=== PATIENT | female | born 1950 | race Caucasian/White ===

== ENCOUNTER 2018-06-13 10:25 | Emergency (ER) | payer MEDICARE, MEDICAID, SELFPAY ==
[2018-06-13 10:32] VITALS: BP 163/60; PULSE 64; RESP 18; TEMP 36.8
[2018-06-13 10:34] VITALS: RESP 18; TEMP 36.8
[2018-06-13 11:43] VITALS: BP 165/80; PULSE 86; RESP 16; TEMP 36.8; O2SAT 97
--- NOTE | 2018-06-13 12:09 | DI.RAD_ITS ---
SYMPTOM/DIAGNOSIS: S/P FALL ON TO BACK, R/O ACUTE FX THORACOLUMBAR SPINE Frontal and lateral views centered at the thoracolumbar junction were obtained. There are no acute fractures or subluxations seen. Mild degenerative changes are seen in the visualized portions of the thoracolumbar spine. Surgical clips are seen in the abdomen. The bowel gas pattern is nonspecific. The lung bases appear clear. IMPRESSION: No definite acute fracture or subluxation centered at the thoracolumbar junction.
--- NOTE | 2018-06-13 12:16 | ED.GENADUL_ITS ---
Discharge Plan Disposition Patient Disposition: HOME Condition: Improving Discharge Details Chief Complaint: Nk/Back Pain Clinical Impression: Back contusion Primary Care Provider: Phuong Lobo ED Provider: Mavis Bahena Home Meds and New Rx's Prescriptions: Continue citalopram 10 mg tablet 10 mg PO HS Qty: 90 RF: 3 cannabidiol oil BID RF: 0 ibuprofen 600 MG tablet 600 mg PO BID PRNQty: 60 RF: 0 pantoprazole 20 MG tablet,delayed release (DR/EC) 20 mg PO DAILY Qty: 90 RF: 3 No Action ibuprofen 600 mg tablet 600 mg PO QID PRN (Reason: pain) Qty: 60 RF: 1 diazepam 5 mg tablet 5 mg PO TID PRN (Reason: muscle spasm) Qty: 14 RF: 0 Discharge Instructions Instructions: Contusion in Adults (ED), Back Pain (ED) Additional Instructions: Take Motrin and Valium as needed and directed for pain and muscle spasm, respectively. Take the oxycodone for pain not relieved with Motrin or Valium. Alternate ice and heat to the affected area several times daily for 20 minutes at a time. Follow-up with primary care doctor in 1 week for reevaluation. Return to the emergency department any worsening or new concerning symptoms. Discharge Data Discharge Date/Time-TO BE ENTERED AT DEPARTURE: 06/13/18 15:18 Discharge Physician: Mavis Bahena Medical Decision Making Patient is a 67-year-old female who presents with mid back pain after mechanical fall directly on back 5 days ago at home. No focal deficits. No chest or abdominal pain. 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 Blood pressure 165/80, remainder vitals within normal limits. Patient appears nontoxic but mildly uncomfortable due to pain. Pain worse with movement. She has tenderness to palpation along the lower midline thoracic spine and bilateral paraspinal region. No evidence of trauma or step-off. Lungs clear to auscultation. Abdomen soft nontender. Distal pulses intact. Patient offered narcotics but declines at this time. Will give a dose of Toradol IM and Valium p.o. and send for thoracic spine x-ray. Discussed with radiology and asked that they widen the view to observe the ribs in this region. 1440 -- Xray reviewed and negative. Pt feels much better and is requesting to go home. Patient was observed talking with another person in the waiting room and was twisted around in a chair and appeared much more comfortable. Will send home with 2 tabs of oxycodone to take if pain persists or worsens. Will send home with prescription for Motrin and Valium. Patient instructed on the importance of ice, heat. Instructed to f/u with the primary care doctor in 1 week for reevaluation and return to ER if worse. HPI General Mode of arrival: ambulatory . Date/Time Provider Initiated Documentation: 06/13/18 11:24 . Limitations to Documentation: no limitations . Information obtained by: patient . HPI Narrative: Patient is a 67-year-old female who presents with mid back pain after mechanical fall directly on back 5 days ago at home. She denies head injury, LOC or vomiting. She states pain is worse with movement and when laying supine and better with nothing. She has taken ibuprofen, applied heat and BenGay without relief. 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 She denies chest pain, shortness of breath, abdominal pain, leg pain, weakness, numbness, saddle anesthesia, urinary or fecal incontinence. Past medical history: Depression, osteoarthritis, post poliomyelitis Surgical history: Knee surgery, D&C, tonsillectomy Social history: Occasional alcohol use, denies tobacco or drugs Medications: See list Allergies: Cipro Related Data Home Medications Medication Instructions Recorded Confirmed Cannabidiol Oil BID 05/21/17 06/16/18 ibuprofen 600 mg PO BID PRN #60 tab-cap 10/15/17 06/16/18 pantoprazole 20 mg PO DAILY #90 tab-cap 04/30/18 06/16/18 citalopram 10 mg tablet 10 mg PO HS #90 tab-cap 06/04/18 06/16/18 diazepam 5 mg tablet 5 mg PO TID PRN #14 tab 06/16/18 06/16/18 ibuprofen 600 mg tablet 600 mg PO QID PRN #60 tab 06/16/18 06/16/18 Previous Rx's Medication Instructions Recorded pantoprazole 20 mg PO DAILY #90 tab-cap 04/30/18 citalopram 10 mg tablet 10 mg PO HS #90 tab-cap 06/04/18 diazepam 5 mg tablet 5 mg PO TID PRN #14 tab 06/16/18 ibuprofen 600 mg tablet 600 mg PO QID PRN #60 tab 06/16/18 Allergies Allergy/AdvReac Type Severity Reaction Status Date / Time ciprofloxacin HCl Allergy Severe Unverified 06/16/18 14:34 [From Cipro] General Stated Complaint: Nk/Back Pain ANKUSH: 4 Review of Systems Review of Systems All systems reviewed & are unremarkable except as noted in HPI and below PFSH Family History Father Diabetes Heart disease Brother Frontal lobe dementia Brother Personal history of malignant neoplasm Medical History Depression Osteoarthritis Post poliomyelitis syndrome Social History Smoking/Tobacco Use Status: Never Surgical History Arthroplasty of knee Colonoscopy - IV Sedation (04/05/15) Dilation and curettage EGD - IV Sedation (06/22/16) left hip due to polio Exam Const General: cooperative, healthy appearing, no acute distress and other (pt appears mildly uncomfortable) Orientation: alert, awake and oriented x3 HENMT Head: normal to inspection Ears: hearing grossly normal bilaterally and external ears normal General nose exam: external nose normal Face and sinus: normal facial exam Mouth: oral mucosae normal Eyes General: appearance normal, both eyes and all related structures Eyelids: eyelids normal EOM: EOM intact bilaterally Neck Neck: normal visual inspection Lymphatic: no lymphadenopathy noted Chest Chest: normal inspection of the chest Resp Effort & Inspection: normal respiratory effort and able to speak in complete sentences Auscultation: clear to auscultation bilaterally Cardio Rate: regular rate Rhythm: regular rhythm GI Inspection: normal to inspection Palpation: soft, not firm, no guarding, no hepatosplenomegaly, no masses and nontender Auscultation: normal bowel sounds Back/Spine/Pelvis Back: No mass, No erythema, No warmth and No ecchymosis Cervical Spine: No cervical spinal tenderness Thoracic/Lumbar Spine: paraspinal tenderness (Bilateral thoracic), thoracic spinal tenderness and No lumbar spinal tenderness Skin General skin exam: no rashes or lesions noted Neuro General: alert and awake Cognition: normal cognition Speech: speech normal Gait: normal gait Motor: muscle tone normal throughout Sensory Exam: no sensory deficits noted DTR's: Rt Patellar: 1+ and Rt Ankle: 1+ Plantar Reflexes: Equivocal: bilateral Extrem General: normal to inspection, full ROM and normal capillary refill Left lower extremity: lower leg Other: Bilateral DP/PT pulses intact. Strength right lower extremity 5/5. Strength left lower extremity 3/5 which is chronic. Negative Babinski bilaterally. Psych Appearance: grossly normal Mental Status: mental status grossly normal Speech and Movement: speech and movement normal Affect: normal affect Thought Process: normal Course Vital Signs Temperature 98.2 F 06/13/18 10:32 Pulse 64 06/13/18 10:32 Respiratory Rate 18 06/13/18 10:32 Blood Pressure 163/60 H 06/13/18 10:32 Temperature 98.2 F 06/13/18 11:43 Temperature Source Temporal Artery Scan 06/13/18 11:43 Pulse 86 06/13/18 11:43 Respiratory Rate 16 06/13/18 11:43 Respiratory Effort 06/13/18 10:34 Respiratory Depth Normal 06/13/18 10:34 Respiratory Pattern Normal 06/13/18 10:34 Blood Pressure 165/80 H 06/13/18 11:43 Blood Pressure Position Supine 06/13/18 10:32 Pulse Oximetry 97 06/13/18 11:43 Oxygen Delivery Method Room Air 06/13/18 11:43 Oxygen Flow Rate 0 06/13/18 11:43 Pain Level 10 06/13/18 10:32
[2018-06-13] MEDS: Ketorolac 60 MG/2 ML VIAL IM (12:17)
[2018-06-13] MEDS: Diazepam 5 MG TAB PO (12:17)
[2018-06-13] MEDS: oxyCODONE 5 MG TAB PO (15:12)
[2018-06-13 15:16] VITALS: BP 145/80; PULSE 86; RESP 18; TEMP 36.8; O2SAT 99
== END 2018-06-13 15:18 | disposition home or self-care (01) ==
PROVIDERS: Emergency Provider Physician Assistant; PCP Internal Medicine
DX: S20.229A Contusion of unspecified back wall of thorax, initial encounter (principal); W18.30XA Fall on same level, unspecified, initial encounter
CPT/HCPCS: 96372; 99284; 72080; J1885

== ENCOUNTER 2019-05-03 13:19 | Emergency (ER) | payer MEDICARE, MEDICAID, SELFPAY ==
[2019-05-03 13:29] VITALS: BP 136/87; PULSE 79; RESP 14; TEMP 36.4; O2SAT 98
--- NOTE | 2019-05-03 13:47 | DI.RAD_ITS ---
SYMPTOM/DIAGNOSIS: SWELLING TOP OF FOOT LEFT FOOT: Three views were obtained. Note is made of soft tissue swelling over the dorsum of the foot at the level of the metatarsals. No definite underlying bony abnormality is seen. Please correlate clinically with history of trauma. Additional evaluation with CT or MRI may be considered if there is a suspicion of a mass of the foot.
--- NOTE | 2019-05-03 14:14 | ED.GENADUL_ITS ---
Discharge Plan Disposition Patient Disposition: HOME Condition: Fair Discharge Details Chief Complaint: Orthopedic Clinical Impression: Contusion of foot Primary Care Provider: Phuong Lobo ED Provider: Shelby Duron Home Meds and New Rx's Prescriptions: Continued citalopram 10 mg tablet 10 mg PO HS Qty: 90 RF: 3 diazepam 5 mg tablet 5 mg PO TID PRN (Reason: muscle spasm) Qty: 14 RF: 0 cannabidiol oil BID RF: 0 pantoprazole 20 MG tablet,delayed release (DR/EC) 20 mg PO DAILY Qty: 90 RF: 3 ibuprofen 600 mg tablet 600 mg PO BID PRN (Reason: pain) Qty: 60 RF: 5 Discharge Instructions Instructions: Contusion in Adults (ED), Foot Contusion (ED) Additional Instructions: Encourage rest, ice, elevation. Tylenol and ibuprofen as needed for discomfort. He the Jasvir wrap to help with swelling. If the pain persists over the next 1 to 2 weeks follow up with primary care provider. If you develop new or worsening symptoms please seek care urgently once again. Referrals: Phuong Lobo MD [Primary Care Provider] - Discharge Data Discharge Date/Time-TO BE ENTERED AT DEPARTURE: 05/03/19 15:28 Medical Decision Making Patient 68-year-old female presenting today with chief complaint of left foot pain x3 weeks. On exam, the patient has swelling and ecchymosis to the dorsal aspect of the foot. She is neurovascular intact. Brisk capillary refill. Sensation is intact. Concern for fracture, plan for imaging X-ray reviewed by radiologist with no acute bony abnormality noted. Discussed these findings with the patient. I do not see any evidence of cellulitis or acute infection. Encourage rest, ice, elevation. Tylenol and ibuprofen as needed for discomfort. Advised to follow-up with primary care if not improving and the next 1 to 2 weeks. We discussed the signs symptoms of infection that should prompt her to seek care urgently once again. All the questions and concerns were addressed and she is in agreement this plan. HPI General Mode of arrival: ambulatory . Date/Time Provider Initiated Documentation: 05/03/19 14:06 . Limitations to Documentation: no limitations . Information obtained by: patient and RN notes reviewed . HPI Narrative: Patient is 68-year-old female presented today with chief complaint of left foot pain. She reports that 3 weeks ago she was working around her house when a 3 layer table tipped over landing on the dorsal aspect of her foot. Since then, she has had a large amount of ecchymosis. She reports that this is been improving. However, she noted today that the area felt warm. She denies any fevers, chills, increased pain. Patient walks with a cane at baseline as she had polio as a child. No change in her gait per patient's report. She denies any increased pain at this time. Related Data Home Medications Medication Instructions Recorded Confirmed Cannabidiol Oil BID 05/21/17 06/16/18 pantoprazole 20 mg PO DAILY #90 tab-cap 04/30/18 06/16/18 citalopram 10 mg tablet 10 mg PO HS #90 tab-cap 06/04/18 06/16/18 diazepam 5 mg tablet 5 mg PO TID PRN #14 tab 06/16/18 06/16/18 ibuprofen 600 mg tablet 600 mg PO BID PRN #60 tab-cap 10/22/18 Previous Rx's Medication Instructions Recorded pantoprazole 20 mg PO DAILY #90 tab-cap 04/30/18 citalopram 10 mg tablet 10 mg PO HS #90 tab-cap 06/04/18 diazepam 5 mg tablet 5 mg PO TID PRN #14 tab 06/16/18 ibuprofen 600 mg tablet 600 mg PO BID PRN #60 tab-cap 10/22/18 Allergies Allergy/AdvReac Type Severity Reaction Status Date / Time ciprofloxacin HCl Allergy Severe Unverified 06/16/18 14:34 [From Cipro] General Stated Complaint: Orthopedic ANKUSH: 4 Review of Systems Constitutional Reports as per HPI, Denies chills, Denies fever(s), Denies headache(s) and Denies weakness ENT Denies headache(s) Cardiovascular Reports as per HPI Respiratory Reports as per HPI and Denies cough Musculoskeletal Reports as per HPI and Denies tingling Integumentary/Breasts Reports as per HPI, Denies rash and Denies wounds Neurologic Reports as per HPI, Denies headache(s), Denies tingling, Denies paresthesias and Denies weakness [facility] Social History Smoking/Tobacco Use Status: Never Alcohol Intake: never Drug use: Never Do you feel safe at home: Yes Do you feel safe in your relationship?: Yes Exam Const General: cooperative, healthy appearing, comfortable, no acute distress, well developed and well groomed Nutritional Appearance: average body habitus and well nourished Orientation: alert and awake Resp Effort & Inspection: normal respiratory effort, able to speak in complete sentences and no respiratory distress Cardio Rate: regular rate Rhythm: regular rhythm Skin General skin exam: no rashes or lesions noted Lesions: no lesions Rashes: no rashes Trauma: no lacerations or abrasions Neuro General: alert and awake Cognition: normal cognition Speech: speech normal Gait: normal gait Motor: muscle tone normal throughout Sensory Exam: no sensory deficits noted Psych Appearance: grossly normal and well kempt Mental Status: mental status grossly normal Speech and Movement: speech and movement normal Course Vital Signs Temperature 36.4 C L 05/03/19 13:29 Pulse 79 05/03/19 13:29 Respiratory Rate 14 05/03/19 13:29 Blood Pressure 136/87 05/03/19 13:29 Pulse Oximetry 98 05/03/19 13:29 Temperature 36.4 C L 05/03/19 13:29 Temperature Source Temporal Artery Scan 05/03/19 13:29 Pulse 79 05/03/19 13:29 Respiratory Rate 14 05/03/19 13:29 Blood Pressure 136/87 05/03/19 13:29 Pulse Oximetry 98 05/03/19 13:29 Oxygen Delivery Method Room Air 05/03/19 13:29 Oxygen Flow Rate 0 05/03/19 13:29 Pain Level 0 05/03/19 13:29
== END 2019-05-03 15:28 | disposition home or self-care (01) ==
PROVIDERS: Emergency Provider Physician Assistant; PCP Internal Medicine
DX: S90.32XA Contusion of left foot, initial encounter (principal); W20.8XXA Other cause of strike by thrown, projected or falling object, initial encounter
CPT/HCPCS: 99283; 73630; 99282

== ENCOUNTER 2019-07-10 02:36 | Outpatient (CLI) | payer MEDICARE, MEDICAID, SELFPAY ==
--- NOTE | 2019-07-10 10:47 | PFT_ITS ---
JULY 10, 2019 REQUESTING PROVIDER: Catarina Rodas. SPIROMETRY: Shows no evidence of obstructive airways disease. No bronchodilator response. LUNG VOLUME: Shows no evidence of restriction. DIFFUSION CAPACITY: Normal. AIRWAYS RESISTANCE: Normal. IMPRESSION: Normal pulmonary function study. Clinical correlation is recommended.
[2019-07-10] MEDS: Inhaler, Assist Device 1 EACH MC (13:32)
[2019-07-10] MEDS: Albuterol HFA 18 GM 200 PUFF INH IH (13:33)
== END 2019-07-10 02:56 ==
PROVIDERS: PCP Internal Medicine; Visit Provider Internal Medicine
DX: R06.00 Dyspnea, unspecified (principal)
CPT/HCPCS: 94060; 94150; 94726; 94729

== ENCOUNTER 2019-07-27 01:15 | Outpatient (CLI) | payer MEDICARE, MEDICAID, SELFPAY ==
--- NOTE | 2019-07-27 12:23 | DI.MAMMO_ITS ---
EXAM: MG MAMMO SCREENING CLINICAL HISTORY: screening Z12.39 TECHNIQUE: Bilateral full field digital CC and MLO mammographic images were obtained with 3D tomosyn thesis and utilizing computer aided detection (CAD). COMPARISON: Available for comparison. FINDINGS: Masses/Architectural Distortion: None seen. Microcalcifications: No suspicious pleomorphic-type are seen. Skin Thickening/Nipple Retraction: None. IMPRESSION: 1. No significant interval change with no specific features of malignancy noted. 2. Unless there is more urgent need, screening mammography is recommended, as per [employer] guidelines. ACR BI-RAD Category- 1 Negative Breast Density - Category B - Scattered areas of fibroglandular density A negative radiographic report should not delay biopsy if a dominant or clinically suspicious mass is present. Up to ten percent of cancers are not identified on mammography. A negative report may reinforce clinical impression. Adenosis and dense breasts may obscure an underlying neoplasm. False positive reports average 6 to 10%. Patient will receive a letter notifying them of these results.
== END 2019-07-27 01:35 ==
PROVIDERS: PCP Internal Medicine; Visit Provider Internal Medicine
DX: Z12.31 Encounter for screening mammogram for malignant neoplasm of breast (principal)
CPT/HCPCS: 77063; 77067

== ENCOUNTER 2021-06-02 02:26 | Outpatient (CLI) | payer MEDICARE, MEDICAID, SELFPAY ==
[2021-06-02 14:44] LABS: Anion Gap 7.9 mmol/L (3-11); BUN 16 mg/dL (7-18); CO2 27.1 mmol/L (21.0-32.0); CREATININE 0.7 mg/dL (0.55-1.02); Calcium 9.9 mg/dL (8.5-10.1); Calculated LDL 143 mg/dL (<100); Chloride 105 mmol/L (98-107); Cholesterol 220 mg/dL (<200); Glucose 77 mg/dL (74-106); HDL Cholesterol 59 mg/dL (40-60); Potassium 4.6 mmol/L (3.5-5.1); Sodium 140 mmol/L (136-145); Triglyceride 94 mg/dL (<150)
== END 2021-06-02 02:27 | disposition home or self-care (01) ==
LOC: LBO 02:26
PROVIDERS: PCP Internal Medicine; Visit Provider Internal Medicine
DX: Z13.220 Encounter for screening for lipoid disorders; Z13.1 Encounter for screening for diabetes mellitus
CPT/HCPCS: 36415; 80048; 80061

== ENCOUNTER 2021-06-02 03:29 | Outpatient (CLI) | payer MEDICARE, MEDICAID, SELFPAY ==
--- NOTE | 2021-06-02 07:15 | DI.MAMMO_ITS ---
Exam(s) MAMMO SCREENING EXAM: MAMMO SCREENING CLINICAL HISTORY: screening,Z12.39 TECHNIQUE: Bilateral full field digital CC and MLO mammographic images were obtained with 3D tomosyn thesis and utilizing computer aided detection (CAD). COMPARISON: Available for comparison. FINDINGS: Masses/Architectural Distortion: None seen. Microcalcifications: No suspicious pleomorphic-type are seen. Skin Thickening/Nipple Retraction: None. IMPRESSION: 1. No significant interval change with no specific features of malignancy noted. 2. Unless there is more urgent need, screening mammography is recommended, as per [employer] guidelines. BI-RADS Category 1 - Negative Breast Density - Category B - Scattered areas of fibroglandular density Breast density category C or D implies that the patient has dense breast tissue. Dense breast tissue is very common and is not abnormal but dense breast tissue can make it harder to find cancer on a ma mmogram. Also, dense breast tissue may increase their breast cancer risk. This information about the result of the mammogram report was provided to the patient to raise their awareness. Use this report when you speak with the patient about their risks for breast cancer, which includes their family hist ory. At that time, you may recommend for more screening tests (Ultrasound or MRI) as they might be us eful based on their risk. A negative radiographic report should not delay biopsy if a dominant or clinically suspicious mass is present. Up to ten percent of cancers are not identified on mammography. A negative report may reinforce clinical impression. Adenosis and dense breasts may obscure an underlying neoplasm. False positive reports average 6 to 10%. Patient will receive a letter notifying them of these results.
== END 2021-06-02 03:49 ==
PROVIDERS: PCP Internal Medicine; Visit Provider Internal Medicine
DX: Z12.31 Encounter for screening mammogram for malignant neoplasm of breast (principal)
CPT/HCPCS: 77063; 77067

== ENCOUNTER 2022-03-13 09:11 | Outpatient (REF) | payer MEDICARE, MEDICAID, SELFPAY ==
[2022-03-15 11:51] LABS: COVID-19 RT-PCR UVMMC Result Negative (Negative)
== END 2022-03-13 09:12 | disposition home or self-care (01) ==
LOC: LBN 09:11
PROVIDERS: PCP Internal Medicine; Visit Provider Internal Medicine
DX: Z20.822 Contact with and (suspected) exposure to COVID-19 (principal); Z01.818 Encounter for other preprocedural examination
CPT/HCPCS: U0003; U0005

== ENCOUNTER 2022-07-31 03:36 | Outpatient (CLI) | payer MEDICARE, MEDICAID, SELFPAY ==
[2022-08-01 09:47] LABS: Hepatitis C Ab w Rflx HCV PCR Negative (Negative)
== END 2022-07-31 03:37 | disposition home or self-care (01) ==
LOC: LBO 03:36
PROVIDERS: PCP Nurse Practitioner Adult Health; Visit Provider Nurse Practitioner Family
DX: Z11.59 Encounter for screening for other viral diseases (principal); G14 Postpolio syndrome; F41.8 Other specified anxiety disorders
CPT/HCPCS: 36415; 86803

== ENCOUNTER 2022-11-16 00:53 | Outpatient (CLI) | payer MEDICARE, MEDICAID, SELFPAY ==
--- NOTE | 2022-11-16 13:00 | DI.DEXA_ITS ---
Exam(s) XR DEXA BONE DENSITY W/WO JUS EXAM: XR DEXA BONE DENSITY W/WO JUS CLINICAL HISTORY: screening for osteoporosis IN POSTMENOPAUSAL WOMAN,Z78.0 TECHNIQUE: Routine DEXA evaluation of the lumbar spine, hip, or forearm. COMPARISON: No exams were available for comparison FINDINGS: Performed on a Hologic unit. Lateral image: No compression fracture evident. Lumbar Spine total T-score: -1.6 Hip total T-score:-2.2 Independent reading at the level of the femoral neck yields T-score of -1.5 Forearm total T-score: -3.0 IMPRESSION: Bone mineral density measures in the osteopenia range for the spine and hip. Reading for the forearm is in the osteoporosis range.. Fracture risk is moderate-high. Note: Any spine fracture indicates 5x risk for subsequent spine fracture and 2x risk for subsequent h ip fracture. World Health Organization criteria for BMD interpretation classify patients: Normal...... T- Score at or above -1.0 Osteopenic... T- Score between -1.0 and -2.5 Osteoporosis... T-Score at or below -2.5
== END 2022-11-16 01:13 ==
LOC: DI 00:53
PROVIDERS: PCP Nurse Practitioner Family; Visit Provider Nurse Practitioner Family
DX: M81.0 Age-related osteoporosis without current pathological fracture (principal); M85.88 Other specified disorders of bone density and structure, other site; Z78.0 Asymptomatic menopausal state
CPT/HCPCS: 77080

== ENCOUNTER → 2022-11-26 10:25 | Outpatient (BNVA) | payer MEDICARE, MEDICAID, SELFPAY | PROVIDERS: PCP Nurse Practitioner Family; Referring Provider Nurse Practitioner Family; Visit Provider Surgery | DX: K59.00 Constipation, unspecified (principal); Z80.0 Family history of malignant neoplasm of digestive organs; E78.00 Pure hypercholesterolemia, unspecified; G14 Postpolio syndrome; G83.14 Monoplegia of lower limb affecting left nondominant side | CPT/HCPCS: 99203 ==

== ENCOUNTER 2022-12-03 03:51 | Outpatient (CLI) | payer MEDICARE, MEDICAID, SELFPAY ==
[2022-12-03 12:33] LABS: Abs Immature Grans 0.01 10^3/uL (0.0-0.06); Absolute Basophil Count 0.07 10^3/uL (0.0-0.2); Absolute Lymphocyte Count 1.42 10^3/uL (1.2-3.4); Absolute Monocyte Count 0.64 10^3/uL (0.1-0.8); Absolute Neutrophil Count 2.79 10^3/uL (1.2-6.7); Basophils % 1.4; HCT 43.5 % (36.0-46.0); HGB 14.7 g/dL (11.2-15.7); Immature Grans % 0.2; Lymphocytes % 28.2; MCH 30.6 pg (27.0-33.0); MCHC 33.8 % (32.0-36.0); MCV 90 fL (80-95); MPV 10.4 fL (8.0-11.0); Monocytes % 12.7; Neutrophils % 55.5; Platelet Count 254 10^3/uL (130-400); RBC 4.81 10^6/uL (3.93-5.22); RDW 12.8 % (11.7-14.6); RDW-SD 42.2 fL; WBC 5.03 10^3/uL (4.4-10.8)
[2022-12-03 13:10] LABS: ALT 25 U/L (14-59); AST 16 U/L (15-37); Albumin 4.1 g/dL (3.4-5.0); Alkaline Phosphatase 133 U/L (46-116); Anion Gap 9.2 mmol/L (3-11); BUN 12 mg/dL (7-18); Bilirubin, Total 0.4 mg/dL (0.2-1.0); CO2 27.8 mmol/L (21.0-32.0); CREATININE 0.6 mg/dL (0.55-1.02); Chloride 103 mmol/L (98-107); Estimated GFR 94.72 (mL/min/1.73m2); Glucose 92 mg/dL (74-106); Potassium 4.1 mmol/L (3.5-5.1); Sodium 140 mmol/L (136-145); Total Protein 7.5 g/dL (6.4-8.2)
== END 2022-12-03 03:52 | disposition home or self-care (01) ==
LOC: LBO 03:51
PROVIDERS: PCP Nurse Practitioner Family; Visit Provider Surgery
DX: E78.00 Pure hypercholesterolemia, unspecified (principal); K57.30 Diverticulosis of large intestine without perforation or abscess without bleeding; R03.0 Elevated blood-pressure reading, without diagnosis of hypertension
CPT/HCPCS: 36415; 80053; 85025

== ENCOUNTER → 2023-06-04 02:46 | Outpatient (CLI) | payer MEDICARE, MEDICAID, SELFPAY ==
--- NOTE | 2023-06-04 12:01 | DI.MAMMO_ITS ---
Exam(s) MAMMO SCREENING EXAM: MAMMO SCREENING CLINICAL HISTORY: screening,z12.39 TECHNIQUE: Bilateral full field digital CC and MLO mammographic images were obtained with 3D tomosyn thesis and utilizing computer aided detection (CAD). COMPARISON: Available for comparison. FINDINGS: Masses/Architectural Distortion: No suspicious nodules or areas of architectural distortion are seen. Microcalcifications: No suspicious pleomorphic-type are seen. Skin Thickening/Nipple Retraction: None. IMPRESSION: 1. No significant interval change with no specific features of malignancy noted. 2. Unless there is more urgent need, screening mammography is recommended, as per [employer] guidelines. BI-RADS Category 1 - Negative Breast Density - Category B - Scattered areas of fibroglandular density Breast density category C or D implies that the patient has dense breast tissue. Dense breast tissue is very common and is not abnormal but dense breast tissue can make it harder to find cancer on a ma mmogram. Also, dense breast tissue may increase their breast cancer risk. This information about the result of the mammogram report was provided to the patient to raise their awareness. Use this report when you speak with the patient about their risks for breast cancer, which includes their family hist ory. At that time, you may recommend for more screening tests (Ultrasound or MRI) as they might be us eful based on their risk. A negative radiographic report should not delay biopsy if a dominant or clinically suspicious mass is present. Up to ten percent of cancers are not identified on mammography. A negative report may reinforce clinical impression. Adenosis and dense breasts may obscure an underlying neoplasm. False positive reports average 6 to 10%. Patient will receive a letter notifying them of these results.
== END ==
PROVIDERS: PCP Nurse Practitioner Family; Visit Provider Nurse Practitioner Family
DX: Z12.31 Encounter for screening mammogram for malignant neoplasm of breast (principal)
CPT/HCPCS: 77063; 77067

== ENCOUNTER → 2023-10-14 02:13 | Outpatient (CLI) | payer MEDICARE, MEDICAID, SELFPAY ==
--- NOTE | 2023-10-14 07:30 | DI.RAD_ITS ---
Exam(s) XR CHEST 2V PA LATERAL EXAM: XR CHEST 2V PA LATERAL CLINICAL HISTORY: episodes dyspnea intermittently,R06.00 TECHNIQUE: 2D digital imaging was performed of the chest. Two images were obtained. PA and lateral views were obtained. COMPARISON: CR,RF BARIUM SWALLOW W PA LAT CXR from 03/14/2012 FINDINGS: MEDIASTINUM: Normal. HEART: Normal. PULMONARY VASCULATURE: Normal. LUNGS: Clear. PLEURAL SPACE: No pleural effusion or pneumothorax. BONE:Within normal limits for the patient's age. There are mild compression deformities at T6 and T8 . OTHER FINDINGS:Surgical clips are seen in the upper abdomen. IMPRESSION: No acute pulmonary findings. DATA REPOSITORY: RADIATION DOSE DELIVERED:
== END ==
PROVIDERS: PCP Nurse Practitioner; Visit Provider Nurse Practitioner
DX: R06.00 Dyspnea, unspecified (principal)
CPT/HCPCS: 71046

== ENCOUNTER 2023-10-31 04:08 | Outpatient (CLI) | payer MEDICARE, MEDICAID, SELFPAY ==
[2023-10-31 13:48] LABS: ALT 30 U/L (14-59); AST 17 U/L (15-37); Albumin 3.9 g/dL (3.4-5.0); Alkaline Phosphatase 117 U/L (46-116); Anion Gap 8.9 mmol/L (3-11); BUN 19 mg/dL (7-18); Bilirubin, Total 0.3 mg/dL (0.2-1.0); CO2 27.1 mmol/L (21.0-32.0); CREATININE 0.6 mg/dL (0.55-1.02); Calculated LDL 104 mg/dL (<100); Chloride 106 mmol/L (98-107); Cholesterol 186 mg/dL (<200); Estimated GFR 94.13 (mL/min/1.73m2); Glucose 89 mg/dL (74-106); HDL Cholesterol 59 mg/dL (40-60); Sodium 142 mmol/L (136-145); Total Protein 7.3 g/dL (6.4-8.2); Triglyceride 119 mg/dL (<150)
== END 2023-10-31 04:09 | disposition home or self-care (01) ==
LOC: LBO 04:08
PROVIDERS: Absent Provider Nurse Practitioner; PCP Nurse Practitioner; Referring Provider Nurse Practitioner; Visit Provider Nurse Practitioner
DX: E78.00 Pure hypercholesterolemia, unspecified (principal)
CPT/HCPCS: 36415; 80053; 80061

== ENCOUNTER 2023-11-08 02:53 | Outpatient (CLI) | payer MEDICARE, MEDICAID, SELFPAY ==
--- NOTE | 2023-11-08 13:11 | W.PFT ---
Date of service: 11/08/23 Time of Service: 10:02 Pulmonary Function Test Result Indications: Dyspnea Interpretation Spirometry: There is no airflow limitation. No bronchodilator response. Muscle pressure are normal for age. Impression No airflow obstruction with normal muscle pressures. Clinical Correlation therefore is recommended.
== END 2023-11-08 02:54 | disposition home or self-care (01) ==
LOC: RT 02:54
PROVIDERS: PCP Nurse Practitioner; Visit Provider Physician Assistant Surgical
DX: R06.00 Dyspnea, unspecified (principal)
CPT/HCPCS: 94010

== ENCOUNTER 2023-11-21 11:26 | Outpatient (RCR) | payer MEDICARE, MEDICAID, SELFPAY ==
--- NOTE | 2023-11-21 11:45 | HOLTER_ITS ---
APPROVED REPORT Conclusion This is a 48-hour Holter monitor Rhythm throughout was sinus with average heart rate of 82. Minimum was 83, maximum 119 A total of 8 isolated premature ventricular contractions occurred There were very rare isolated atrial premature beats, 50 in 48 hours There was no atrial fibrillation, no SVT, no high-grade AV block, no pauses greater than 3 seconds No patient symptoms were reported
== END 2023-12-15 23:59 | disposition home or self-care (01) ==
LOC: CARDOPNVT 11:26
PROVIDERS: PCP Nurse Practitioner; Visit Provider Internal Medicine Cardiovascular Disease
DX: R00.2 Palpitations (principal); I49.3 Ventricular premature depolarization
CPT/HCPCS: 93227; 93225; 93226

== ENCOUNTER → 2023-12-30 14:40 | Outpatient (BNVA) | payer MEDICARE, MEDICAID, SELFPAY | PROVIDERS: PCP Nurse Practitioner; Referring Provider Nurse Practitioner; Visit Provider Student in an Organized Health Care Education/Training Program | DX: R06.00 Dyspnea, unspecified (principal); G14 Postpolio syndrome | CPT/HCPCS: 99214 ==

== ENCOUNTER → 2024-01-20 02:17 | Outpatient (CLI) | payer MEDICARE, MEDICAID, SELFPAY ==
--- NOTE | 2024-01-20 14:30 | DI.US_ITS ---
APPROVED REPORT EXAM: Comprehensive 2D, Doppler, and color-flow Echocardiogram Patient Location: Out-Patient [facility] Operator: Cheng Chakraborty RDCS (AE) Indications: Dyspnea, normal PFTs, PND Conclusion Normal left ventricular wall thickness and chamber size. Ejection fraction is 60 to 65%. Wall motio n is normal Normal right ventricular size and function Both atria are normal in size Aortic valve is trileaflet with mild to moderate aortic regurgitation Mild tricuspid regurgitation. Estimated right ventricular systolic pressure is 27 mmHg Dilated ascending aorta 4.05 cm Wall motion Left Ventricle The left ventricle is normal size. The left ventricular systolic function is normal. The left ventric ular ejection fraction is within the normal range. There is normal left ventricular wall thickness. T here is normal LV segmental wall motion. There is no ventricular septal defect visualized. LVEF is 60 -65%. Right Ventricle The right ventricle is normal size. The right ventricular systolic function is normal. Atria The left atrium size is normal. The right atrium size is normal. The interatrial septum is intact wit h no evidence for an atrial septal defect. Aortic Valve The aortic valve is normal in structure. Aortic valve is trileaflet. There is no aortic valvular sten osis. Mild to moderate aortic regurgitation. Mitral Valve The mitral valve is normal in structure. No evidence of mitral valve stenosis. Trace mitral regurgita tion. Tricuspid Valve The tricuspid valve is normal in structure. There is no tricuspid valve stenosis. Mild tricuspid regu rgitation. The RVSP is 27.1 mmHg. Pulmonic Valve The pulmonary valve is normal in structure. There is no pulmonic valvular stenosis. Mild pulmonic reg urgitation. Great Vessels The aortic root is normal in size. The ascending aorta is moderately dilated. Aortic arch is normal i n caliber. IVC is normal in size and collapses >50% with inspiration. Pericardium There is no pericardial effusion. 2D Dimensions IVSD d PLAX 0.68 cm F: 0.6-1.0 Ao Root d 3.26 cm F: 2.7 - 3.3 LVPW d PLAX 0.69 cm F: 0.6 - 1.0 Ao Asc Diam d 4.05 cm F: 2.3 - 3.1 LVID d PLAX 4.10 cm F: 3.8 - 5.2 LVDs 2.66 cm F: 2.2 - 3.5 LV EF Teichholz 65.0 % FS 35.20 % LV EDV (Teich) 74.4 mL LV ESV (Teich) 26.0 mL Stroke Vol Index (Teich) 28.96 M-Mode TAPSE 1.95 cm (M/F) >1.7 Auto EF LV EDV A4C 92.0 mL LV EDV A2C 77.5 mL LV EDV BP 87.4 mL LV ESV A4C 35.7 mL LV ESV A2C 29.4 mL LV ESV BP 32.5 mL LVEF(%) A4C 61.2 % LVEF(%) A2C 62.1 % LVEF(%) BP 62.8 % LV SV A4C 56.3 ml LV SV A2C 48.2 ml LV SV BP 54.9 ml LV CO A4C 4.1 L/min LV CO A2C 3.8 L/min LV CO BP 4.0 L/min HR A4C 72.70 BPM HR A2C 79.65 BPM LV EDV Index (BP) LA Volume LA Length A4C 3.3 cm LA Length A2C 3.2 cm LA Area A4C s 6.88 cm2 LA Area A2C s 8.64 cm2 LA Vol A4C A-L 12.09 mL LA Vol A2C A-L 20.12 mL LA Vol Biplane A-L 16.0 mL LA Vol/BSA A4C A-L LA Vol/BSA A2C A-L LA Vol/BSA BP A-L 9.6 mL/m2 LA Vol A4C MOD 10.9 mL LA Vol A2C MOD 15.9 mL LA Vol BP MOD 13.2 mL RA Volume RA Area A4C 3.4 cm2 RA ESV A4C (A-L) 4.5mL RA Vol/BSA A4C A-L RA Length A4C 2.1 cm RA ESV A4C (MOD) 4.0mL LV Diastology MV E' medial 0.057 (>0.07 m/s) MV E Vmax 0.58 (0.4-1.3 m/s) MV E/E' MED 10.05 (<14) MV A Vmax 1.05 (0.4-1.3 m/s) MV E' lateral 0.056 (>0.1 m/s) E/A Ratio 0.6 MV E/E' LAT 10.25 (<14) MV E' Average 0.057 m/s MV E/E'(average) 10.15 Aortic Valve AoV Vmax 1.12 m/s LVOT Vmax 1.00 m/s AoV Peak Grad 46.6 mmHg LVOT Peak Grad 4.0 mmHg AoV Area (Vmax) 2.36 cm2 LVOT VTI 0.225 m AoV VTI 0.234 m LVOT Mean Grad 2.2 mmHg AoV Mean Danis. 0.79 m/s LVOT SV 59.34 mL AoV Mean Grad 2.9 mmHg LVOT Diam s 1.80 cm AoV Area (VTI) 2.54 cm2 AV Regurg Peak Gr. 88.15 mmHg Velocity Ratio 0.89 AR Decel [place] 2.8m/sec2 AR DT 1705 msec AR PHT 495 msec AR Vmax 4.69 m/s Mitral Valve MV DT 272 (160-240 msec) Pulmonary Valve PV Vmax 1.10 (0.5-1.5 m/s) RVOT Vmax 0.75 m/s PV Peak Grad 4.8 mmHg RVOT Peak Gr. 2.3 mmHg PV Mean Danis 0.80 m/s RVOT VTI 0.145 m PV Mean Grad 2.8 mmHg RVOT Mean Gr. 1.1 mmHg Tricuspid Valve RA Pressure 3.00 mmHg TR Vmax 2.46 m/s TR Peak Grad 24.1 mmHg RVSP (TR) 27.1 mmHg
== END ==
PROVIDERS: PCP Nurse Practitioner; Visit Provider Student in an Organized Health Care Education/Training Program
DX: R06.00 Dyspnea, unspecified (principal); I36.1 Nonrheumatic tricuspid (valve) insufficiency
CPT/HCPCS: 93306

== ENCOUNTER 2024-11-27 12:33 | Outpatient (REF) | payer MEDICARE, MEDICAID, SELFPAY | END 2024-11-27 12:34 | disposition home or self-care (01) | LOC: LBN 12:33 | PROVIDERS: PCP Nurse Practitioner; Visit Provider Nurse Practitioner Family | DX: N39.3 Stress incontinence (female) (male); R35.0 Frequency of micturition | CPT/HCPCS: 87077; 87086; 87186 ==

== ENCOUNTER 2024-12-23 15:55 | Outpatient (REF) | payer MEDICARE, MEDICAID, SELFPAY | END 2024-12-23 15:56 | disposition home or self-care (01) | LOC: LBN 15:55 | PROVIDERS: PCP Nurse Practitioner; Visit Provider Nurse Practitioner Family | DX: R35.0 Frequency of micturition (principal); N39.0 Urinary tract infection, site not specified | CPT/HCPCS: 87086 ==

== ENCOUNTER 2025-01-05 12:30 | Outpatient (REF) | payer MEDICARE, MEDICAID, SELFPAY | END 2025-01-05 12:31 | disposition home or self-care (01) | LOC: LBN 12:30 | PROVIDERS: PCP Nurse Practitioner; Visit Provider Family Medicine | DX: R32 Unspecified urinary incontinence (principal) | CPT/HCPCS: 87086 ==

== ENCOUNTER 2025-01-07 01:19 | Outpatient (CLI) | payer MEDICARE, MEDICAID, SELFPAY ==
--- NOTE | 2025-01-07 08:00 | DI.CT_ITS ---
Exam(s) CT RENAL COLIC WO EXAM: CT RENAL COLIC WO CLINICAL HISTORY: Hematuria and flank pain,n23. TECHNIQUE: Imaging Protocol: Axial computed tomography images with coronal and sagittal reformatted images were created and reviewed CONTRAST MATERIAL: Intravenous: none Oral: None COMPARISON: No exams were available for comparison FINDINGS: VISUALIZED LUNG BASES: No nodules nor pleural effusions evident. ABDOMEN: There is no ascites. Moderate size hiatal hernia noted. LIVER: There are no obvious focal hepatic lesions evident of this noninfused study. Mild uniform juanita atosis noted. No obvious dilated intrahepatic ducts. GALLBLADDER/BILIARY: No obvious gallbladder pathology. CBD is not dilated. PANCREAS: No evidence of pancreatic mass nor dilatation of the pancreatic duct. SPLEEN: Spleen is not enlarged. No obvious intrasplenic lesions. ADRENALS: There are no significant adrenal masses. KIDNEYS:No cysts evident. No solid renal masses. No calculi nor hydronephrosis. . ABDOMINAL AORTA: Abdominal aorta is not enlarged. LYMPH NODES: There is no retroperitoneal nor paraaortic adenopathy. ABDOMINAL WALL: No evidence of significant anterior abdominal wall nor inguinal hernia. GI: There is no evidence of bowel obstruction, free air, nor abscess. PELVIS: LYMPH NODES: There is no intrapelvic nor inguinal adenopathy. GI: No evidence of appendicitis.There is extensive sigmoid diverticulosis. There is no obvious acute diverticulitis. URINARY BLADDER: No calculi nor obvious masses evident REPRODUCTIVE: Calcified right-sided uterine fibroid noted. No abnormal adnexal masses nor free fluid in the pelvis. OSSEOUS: Multilevel chronic degenerative disc disease at L4-5 and L5-S1 levels. No listhesis. There is some facet arthropathy at these levels. Mild invagination of the superior endplate of L3 is note d, not appearing acute and not associated with posterior cortex retropulsion IMPRESSION: 1. Extensive sigmoid diverticulosis. No obvious acute diverticulitis. There is also no evidence of acute appendicitis 2. Hepatic steatosis. No obvious discrete focal hepatic lesions evident on this noninfused study. T here is no ascites. 3. Calcified right-sided uterine fibroid noted. RADIATION DOSE DELIVERED: 531.5mGy.cm Total DLP DATA REPOSITORY: All CT scans at this facility are submitted to the National Radiology Data Registry (NRDR) Dose Index Registry (DIR) with the [employer] ([employer]). RADIATION OPTIMIZATION: All CT scans at this facility use at least one of these dose optimization te chniques: automated exposure control; mA and/or kV adjustment per patient size (includes targeted exa ms where dose is matched to clinical indication); or iterative reconstruction.
== END 2025-01-07 01:39 ==
LOC: DI 01:19
PROVIDERS: PCP Nurse Practitioner; Visit Provider Family Medicine
DX: N23 Unspecified renal colic (principal)
CPT/HCPCS: 74176

== ENCOUNTER 2025-08-04 03:32 | Outpatient (CLI) | payer MEDICARE, MEDICAID, SELFPAY ==
[2025-08-04 12:30] LABS: Anion Gap 7.2 mmol/L (3-11); BUN 13 mg/dL (9-23); CO2 26.8 mmol/L (20.0-31.0); Calcium 9.9 mg/dL (8.3-10.6); Chloride 104 mmol/L (98-107); Cholesterol 182 mg/dL (<200); Glucose 95 mg/dL (74-106); HDL Cholesterol 53 mg/dL (>40); Potassium 3.8 mmol/L (3.5-5.1); Sodium 138 mmol/L (136-145)
== END 2025-08-04 03:33 | disposition home or self-care (01) ==
LOC: LBO 03:32
DX: Z00.00 Encounter for general adult medical examination without abnormal findings (principal); E78.00 Pure hypercholesterolemia, unspecified
CPT/HCPCS: 36415; 80048; 80061

== ENCOUNTER → 2025-08-05 06:22 | Outpatient (CLI) | payer MEDICARE, MEDICAID, SELFPAY ==
--- NOTE | 2025-08-05 | DI.MAMMO_ITS ---
Exam(s) MAMMO SCREENING EXAM: MAMMO SCREENING CLINICAL HISTORY: screening,z12.39 TECHNIQUE: Mammograms were interpreted according to the usual protocol including computer analysis with CAD system, tomosynthesis and C-view imaging. COMPARISON: 2015 through 2012 FINDINGS: The breasts are composed of scattered fibroglandular densities, Breast Density category B. No suspicious masses or suspicious microcalcifications are seen. No skin thickening or abnormal axillary lymph nodes are seen. There has been no significant change from prior exams. IMPRESSION: BI-RADS Category 1, Negative mammogram Yearly screening mammography is recommended. Breast Density - Category B - There are scattered areas of fibroglandular density. Breast density Category C or D implies that the patient has dense breast tissue. Dense breast tissue can make it harder to find cancer on a mammogram. Dense breast tissue is also associated with an increased risk of breast cancer. This information about the result of the mammogram report was provided to the patient to raise their awareness. Use this report when you speak with the patient about their risks for breast cancer, which includes their family history. At that time, you may recommend additional screening tests (Ultrasound or MRI) as these tests may add significant information. A negative radiographic report should not delay biopsy if a dominant or clinically suspicious mass is present. Up to ten percent of cancers are not identified on mammography. A negative report may reinforce clinical impression. Adenosis and dense breasts may obscure an underlying neoplasm. False positive reports average 6 to 10%. Patient will receive a letter notifying them of these results.
== END ==
DX: Z12.31 Encounter for screening mammogram for malignant neoplasm of breast (principal)
CPT/HCPCS: 77063; 77067